=== PATIENT | male | born 1995 | race Caucasian/White ===

== ENCOUNTER 2021-03-03 19:46 | Emergency (ER) | payer BC, OTHER ==
[~2021-03-03] VITALS: Ht 167.6 cm; Wt 99.8 kg
[~2021-03-03 19:46] MED LIST: ALBU0.0952 IH
[2021-03-03 19:58] VITALS: BP 154/74
--- NOTE | 2021-03-03 20:00 | NUR ---
TO LOBBY A/W BED AMBULATORY
[2021-03-03 20:54] LABS: BASOPHILS % (AUTO) 0.5 % (0.0-2.0); EOSINOPHILS # (AUTO) 0.1 K/uL (0-0.4); EOSINOPHILS % (AUTO) 1.8 % (0.0-4.0); HEMATOCRIT 47.4 % (36-52); HEMOGLOBIN 15.9 g/dL (12.0-18.0); LYMPHOCYTES # (AUTO) 2.1 K/uL (2.0-11.5); LYMPHOCYTES % (AUTO) 28.2 % (20.5-51.1); MEAN CORPUSCULAR HEMOGLOBIN 29 pg (27-31); MEAN CORPUSCULAR HGB CONC 33 g/dL (33-37); MONOCYTES # (AUTO) 0.6 K/uL (0.8-1.0); MONOCYTES % (AUTO) 8.2 % (1.7-9.3); NEUTROPHILS # (AUTO) 4.5 K/uL (1.8-7.7); NEUTROPHILS % (AUTO) 61.3 % (42.2-75.2); PLATELET COUNT (AUTO) 267 K/uL (140-450); RED BLOOD CELL COUNT(AUTO) 5.39 MIL/uL (4.20-6.10); WHITE BLOOD COUNT (AUTO) 7.3 K/uL (4.8-10.8)
--- NOTE | 2021-03-03 21:00 | NUR ---
PATIENT PRESENTS TO ED WITH C/O ABDOMINAL PAIN SINCE THIS AM . PT STATES "I VOMITED 3 X'S TODAY AT WORK. SKIN IS PINK/WARM/DRY; AAOX4 WITH EVEN AND STEADY GAIT. PT DENIES ANY FEVER, CP, SOB, OR COUGH AT THIS TIME; VSS; PATIENT POSITIONED FOR COMFORT; HOB ELEVATED; BEDRAILS UP X2; BED DOWN. ER MD MADE AWARE OF PT STATUS.
[2021-03-03 21:12] LABS: ALBUMIN 4.4 g/dL (3.4-5.0); ANION GAP 10.6 (8-16); CARBON DIOXIDE 28.2 mmol/L (21-32); POTASSIUM 3.8 mmol/L (3.5-5.1); TOTAL BILIRUBIN 0.5 mg/dL (0.0-1.0)
[2021-03-03] MEDS ORDERED: FAMOTIDINE 20 MG TAB PO ONE (21:25)
[2021-03-03] MEDS ORDERED: ONDANSETRON 4 MG ODT PO ONE (21:25)
[2021-03-03] MEDS ORDERED: FAMO20TA13 PO (22:13)
[2021-03-03] MEDS ORDERED: ONDA-24 PO (22:13)
[2021-03-03 22:28] VITALS: BP 154/74
--- NOTE | 2021-03-03 22:28 | NUR ---
Patient discharged with v/s stable. Written and verbal after care instructions given and explained. Patient alert, oriented and verbalized understanding of instructions. Ambulatory with steady gait. All questions addressed prior to discharge. ID band removed. Patient advised to follow up with PMD. Rx of FAMOTIDINE, ZOFRAN given. Patient educated on indication of medication including possible reaction and side effects. Opportunity to ask questions provided and answered.
== END 2021-03-03 22:48 | disposition home or self-care (01) ==
LOC: MED 19:46
DX: R10.13 Epigastric pain (principal); R11.2 Nausea with vomiting, unspecified; J45.909 Unspecified asthma, uncomplicated
CPT/HCPCS: 36415; 76705; 80053; 83690; 85025; 99284; Q0162